=== PATIENT | male | born 1970 | race Two or more races ===

== ENCOUNTER 2017-12-11 12:46 | Inpatient (IN) | payer OTHER ==
[~2017-12-11] VITALS: Ht 167.6 cm; Wt 61.0 kg
[2017-12-11] MEDS ORDERED: METF-960 PO (12:52)
[2017-12-11] MEDS ORDERED: SODIUM CHLORIDE 0.9% 1,000 ML IV ONE ×2 (13:15)
[2017-12-11 13:26] LABS: BASOPHILS % (AUTO) 0.3 % (0.0-2.0); EOSINOPHILS % (AUTO) 0.2 % (1.0-6.0); HEMATOCRIT 46.4 % (41-53); HEMOGLOBIN 15.3 g/dL (13.5-17.5); LYMPHOCYTES # (AUTO) 1.1 K/uL (1.0-4.8); LYMPHOCYTES % (AUTO) 5.9 % (22.0-44.0); MEAN CORPUSCULAR HEMOGLOBIN 28.5 pg (26.0-34.0); MEAN CORPUSCULAR VOLUME 86 fL (80-100); MONOCYTES # (AUTO) 0.2 K/uL (0.1-1.0); MONOCYTES % (AUTO) 1.2 % (2.0-9.0); NEUTROPHILS # (AUTO) 16.7 K/uL (1.8-7.7); RED BLOOD CELL COUNT(AUTO) 5.37 MIL/uL (4.50-5.90); RED CELL DISTRIBUTION WIDTH 15.2 % (11.5-14.5)
[2017-12-11 13:28] LABS: NEUTROPHILS % (AUTO) 92.4 % (40.0-70.0)
[2017-12-11 13:31] LABS: INR 1.1 (0.9-1.1); PROTHROMBIN TIME 11.1 SEC (9.4-11.6)
[2017-12-11 13:43] LABS: LACTIC ACID 1.4 mmol/L (0.4-2.0)
[2017-12-11 13:44] LABS: ALANINE AMINOTRANSFERASE 36 U/L (12-78); ALBUMIN 2.8 g/dL (3.4-5.0); ALKALINE PHOSPHATASE 275 U/L (46-116); ANION GAP 30 mmol/L (8-16); ASPARTATE AMINOTRANSFERASE 23 U/L (15-37); BILIRUBIN,TOTAL 0.7 mg/dL (0.1-1.0); CALCIUM, TOTAL 9.3 mg/dL (8.8-10.5); CHLORIDE 96 mmol/L (98-107); CREATININE 1.07 mg/dL (0.60-1.30); GLOMERULAR FILTR. RATE CALC > 60 mL/min (>60); GLUCOSE,RANDOM 223 mg/dL (70-110); SODIUM SERUM 135 mmol/L (136-145); THYROID STIMULATING HORMONE 0.96 uIU/mL (0.36-3.74); TOTAL PROTEIN, SERUM 8.6 g/dL (6.4-8.2); UREA NITROGEN, BLOOD 22 mg/dL (7-18)
[2017-12-11 13:45] LABS: CARBON DIOXIDE 9 mmol/L (22-29)
[2017-12-11 13:57] LABS: PLATELET COUNT (AUTO) 1117 K/uL (150-450)
[2017-12-11 14:02] LABS: ABG A-A DIFF O2 9.3 mmHg (10-20.0); ABG CARBOXYHEMOGLOBIN 1.3 % (0.0-1.5); ABG METHEMOGLOBIN 0.3 % (0.0-1.5); ABG OXYGEN SATURATION 98.3 % (95.0-98.0); ABG OXYHEMOGLOBIN 96.7 % (94.0-100.0); ABG TOTAL HEMOGLOBIN 13.1 G/dL (12.0-18.0); PO2, ARTERIAL BG 121.6 mmHg (88.0-96.0); SOURCE, BLOOD GAS ARTERIAL; TEMPERATURE, FAHRENHEIT, BG 98.9 FAHREN (96.0-98.6)
[2017-12-11 14:03] LABS: ABG HCO3 9.6 mmol/L (22.0-26.0); ABG PCO2 16 mmHg (35-45); ABG PH 7.168 (7.35-7.450); SITE, BLOOD GAS RT RADIAL
[2017-12-11 14:10] LABS: OSMOLALITY 313 mOS/kg (270-310)
[2017-12-11 14:15] LABS: ACETONE,BLOOD 1:16 (NEGATIVE)
[2017-12-11 14:18] LABS: SALICYLATE 3.2 mg/dL (2.8-20.0)
[2017-12-11 14:29] LABS: ACETAMINOPHEN < 2 mcg/mL (10-30)
[2017-12-11 14:54] LABS: AMPHET/METH SCREEN,URINE NEGATIVE (NEGATIVE); BARBITURATE SCREEN, URINE NEGATIVE (NEGATIVE); BENZODIAZEPINES SCREEN,URINE NEGATIVE (NEGATIVE); CANNABINOID SCREEN,URINE NEGATIVE (NEGATIVE); COCAINE SCREEN,URINE NEGATIVE (NEGATIVE); METHADONE SCREEN, URINE NEGATIVE (NEGATIVE); OPIATE SCREEN,URINE NEGATIVE (NEGATIVE)
[2017-12-11 14:55] LABS: APPEARANCE,URINE CLEAR (CLEAR); BILIRUBIN,URINE NEGATIVE (NEGATIVE); GLUCOSE, URINE (UA) >=1000 mg/dL (NEGATIVE); KETONES,URINE >=80 mg/dL (NEGATIVE); LEUKOCYTE ESTERASE ,URINE NEGATIVE (NEGATIVE); NITRATE,URINE NEGATIVE (NEGATIVE); OCCULT BLOOD,URINE TRACE (NEGATIVE); PROTEIN,URINE POS 1+ (NEGATIVE); UROBILINOGEN,URINE 0.2 mg/dL (<=1.0)
[2017-12-11 15:00] LABS: PHENCYCLIDINE SCREEN,URINE NEGATIVE (NEGATIVE)
[2017-12-11 15:03] LABS: BACTERIA,URINE None Seen /HPF (None Seen); RBC,URINE 0-2 /HPF (0-2); SQUAMOUS EPITHELIAL CELL,UR Few /LPF (None Seen); WBC,URINE None Seen /HPF (0-5)
[2017-12-11 15:04] LABS: MUCUS,URINE Rare LPF (None Seen); YEAST,URINE Rare /HPF (None Seen)
[2017-12-11] MEDS ORDERED: MORPHINE SULFATE 4 MG/ML SYRINGE IVP ONE (15:30)
[2017-12-11 18:36] LABS: ABG A-A DIFF O2 15.7 mmHg (10-20.0); ABG BASE EXCESS -18.8 mmol/L (-2.0-3.0); ABG CARBOXYHEMOGLOBIN 1.3 % (0.0-1.5); ABG HCO3 12.2 mmol/L (22.0-26.0); ABG METHEMOGLOBIN 0.3 % (0.0-1.5); ABG OXYGEN CONTENT 19.4 mL/dL (15.0-23.0); ABG OXYGEN SATURATION 98.1 % (95.0-98.0); ABG OXYHEMOGLOBIN 96.5 % (94.0-100.0); ABG PCO2 21 mmHg (35-45); ABG PH 7.241 (7.35-7.450); ABG TOTAL HEMOGLOBIN 14.2 G/dL (12.0-18.0); PO2, ARTERIAL BG 109.5 mmHg (88.0-96.0); SOURCE, BLOOD GAS ARTERIAL; TEMPERATURE, FAHRENHEIT, BG 98.6 FAHREN (96.0-98.6)
[2017-12-11 18:37] LABS: O2 DEVICE,BLOOD GAS ROOM AIR (ROOM AIR); SITE, BLOOD GAS RT RADIAL
[2017-12-11 18:59] LABS: ANION GAP 22 mmol/L (8-16); CALCIUM, TOTAL 8.4 mg/dL (8.8-10.5); CARBON DIOXIDE 11 mmol/L (22-29); CHLORIDE 106 mmol/L (98-107); CREATININE 0.81 mg/dL (0.60-1.30); GLOMERULAR FILTR. RATE CALC > 60 mL/min (>60); GLUCOSE,RANDOM 123 mg/dL (70-110); POTASSIUM 4.3 mmol/L (3.5-5.1); SODIUM SERUM 139 mmol/L (136-145); UREA NITROGEN, BLOOD 19 mg/dL (7-18)
[2017-12-11 19:04] LABS: ALANINE AMINOTRANSFERASE 28 U/L (12-78); ALBUMIN 2.3 g/dL (3.4-5.0); ALKALINE PHOSPHATASE 237 U/L (46-116); ASPARTATE AMINOTRANSFERASE 22 U/L (15-37); BILIRUBIN,TOTAL 0.6 mg/dL (0.1-1.0); TOTAL PROTEIN, SERUM 7.3 g/dL (6.4-8.2)
[2017-12-11 19:06] LABS: LACTIC ACID 0.8 mmol/L (0.4-2.0)
[2017-12-11] MEDS ORDERED: 0.9% SODIUM CHLORIDE 10 ML SYRINGE IVP PRN (20:00)
[2017-12-11] MEDS ORDERED: ZOLPIDEM TARTRATE 5 MG TABLET PO PRN (20:00)
[2017-12-11 20:43] LABS: C-REACTIVE PROTEIN QUANT 5.87 mg/dL (0.00-0.30)
[2017-12-11 21:05] VITALS: BP 151/86
[2017-12-11] MEDS: MVI, ADULT NO.1 WITH VIT K 10 ML in SODIUM CHLORIDE 0.9% 1,000 ML IV SCH ×2 (21:24)
[2017-12-11] MEDS: PANTOPRAZOLE SODIUM 40 MG/VIAL IVP SCH (21:26)
[2017-12-11] MEDS ORDERED: SODIUM CHLORIDE 0.9% 250 ML IV ONE (21:50)
[2017-12-11] MEDS: CefTRIAXone SODIUM 1 GM in DEXTROSE 5%-WATER 10 ML IV SCH (22:02)
[2017-12-11] MEDS: MetroNIDAZOLE 500 MG/NACL 100 ML IV SCH (22:14)
[2017-12-11] MEDS ORDERED: SODIUM CHLORIDE 0.9% 100 ML ONE (22:18)
[2017-12-11] MEDS ORDERED: IOVERSOL 350 MG/ML 100 ML VIAL ONE (22:18)
[2017-12-11] MEDS ORDERED: BARIUM SULFATE 0.1% SUSPENSION 450 ML BOTTLE ONE (22:18)
[2017-12-11] MEDS ORDERED: METOPROLOL TARTRATE 5 MG/5 ML VIAL IVP PRN (23:30)
[2017-12-12] VITALS: BP 150/82
[2017-12-12 04:00] VITALS: BP 158/81
[2017-12-12 05:05] LABS: BASOPHILS % (AUTO) 0.5 % (0.0-2.0); EOSINOPHILS % (AUTO) 0.7 % (1.0-6.0); HEMATOCRIT 41.7 % (41-53); HEMOGLOBIN 13.7 g/dL (13.5-17.5); LYMPHOCYTES # (AUTO) 1.5 K/uL (1.0-4.8); LYMPHOCYTES % (AUTO) 15.5 % (22.0-44.0); MEAN CORPUSCULAR HEMOGLOBIN 28.8 pg (26.0-34.0); MEAN CORPUSCULAR HGB CONC 32.8 G/dL (31.0-37.0); MEAN CORPUSCULAR VOLUME 88 fL (80-100); MONOCYTES # (AUTO) 0.9 K/uL (0.1-1.0); MONOCYTES % (AUTO) 9.3 % (2.0-9.0); NEUTROPHILS # (AUTO) 7.2 K/uL (1.8-7.7); PLATELET COUNT (AUTO) 735 K/uL (150-450); RED BLOOD CELL COUNT(AUTO) 4.76 MIL/uL (4.50-5.90)
[2017-12-12 05:19] LABS: ANION GAP 19 mmol/L (8-16); CALCIUM, TOTAL 8.2 mg/dL (8.8-10.5); CARBON DIOXIDE 13 mmol/L (22-29); CHLORIDE 102 mmol/L (98-107); CREATININE 0.84 mg/dL (0.60-1.30); GLOMERULAR FILTR. RATE CALC > 60 mL/min (>60); GLUCOSE,RANDOM 114 mg/dL (70-110); POTASSIUM 4.2 mmol/L (3.5-5.1); SODIUM SERUM 134 mmol/L (136-145); UREA NITROGEN, BLOOD 16 mg/dL (7-18)
[2017-12-12] MEDS: MetroNIDAZOLE 500 MG/NACL 100 ML IV SCH ×3 (06:15→22:09)
[2017-12-12] MEDS: ONDANSETRON HCL 4 MG/2 ML VIAL IVP PRN (07:58)
[2017-12-12] MEDS: MVI, ADULT NO.1 WITH VIT K 10 ML in SODIUM CHLORIDE 0.9% 1,000 ML IV SCH ×4 (07:59→17:52)
[2017-12-12 08:00] VITALS: BP 132/75
[2017-12-12] MEDS: PANTOPRAZOLE SODIUM 40 MG/VIAL IVP SCH (08:29)
[2017-12-12 12:00] VITALS: BP 138/87
[2017-12-12 13:44] LABS: GLUCOSE,POINT OF CARE 172 MG/DL (70-110)
[2017-12-12] MEDS ORDERED: INSULIN GLARGINE,HUM.REC.ANLOG 100 UNITS/ML SQ ONE (14:15)
[2017-12-12] MEDS: DEXTROSE 5%-0.45% SODIUM CHL 1,000 ML IV SCH ×2 (14:46→23:24)
[2017-12-12] MEDS: MORPHINE SULFATE 2 MG/ML SYRINGE IVP PRN (16:00)
[2017-12-12 16:15] VITALS: BP 131/78
[2017-12-12 20:00] VITALS: BP 124/66
[2017-12-12] MEDS: CefTRIAXone SODIUM 1 GM in DEXTROSE 5%-WATER 10 ML IV SCH (21:25)
[2017-12-13] VITALS (8 sets, daily range): BP systolic 115–136; BP diastolic 49–85
[2017-12-13] MEDS: ONDANSETRON HCL 4 MG/2 ML VIAL IVP PRN (03:47)
[2017-12-13 05:18] LABS: BASOPHILS % (AUTO) 0.4 % (0.0-2.0); EOSINOPHILS % (AUTO) 0.9 % (1.0-6.0); HEMATOCRIT 34.9 % (41-53); HEMOGLOBIN 11.9 g/dL (13.5-17.5); LYMPHOCYTES % (AUTO) 10.7 % (22.0-44.0); MEAN CORPUSCULAR HEMOGLOBIN 28.8 pg (26.0-34.0); MEAN CORPUSCULAR VOLUME 85 fL (80-100); MONOCYTES # (AUTO) 0.8 K/uL (0.1-1.0); NEUTROPHILS # (AUTO) 7.2 K/uL (1.8-7.7); PLATELET COUNT (AUTO) 583 K/uL (150-450); RED BLOOD CELL COUNT(AUTO) 4.13 MIL/uL (4.50-5.90); RED CELL DISTRIBUTION WIDTH 14.5 % (11.5-14.5)
[2017-12-13 05:24] LABS: ANION GAP 10 mmol/L (8-16); CALCIUM, TOTAL 7.7 mg/dL (8.8-10.5); CARBON DIOXIDE 22 mmol/L (22-29); CHLORIDE 100 mmol/L (98-107); GLOMERULAR FILTR. RATE CALC > 60 mL/min (>60); GLUCOSE,RANDOM 210 mg/dL (70-110); SODIUM SERUM 132 mmol/L (136-145); UREA NITROGEN, BLOOD 6 mg/dL (7-18)
[2017-12-13 05:44] LABS: POTASSIUM 2.7 mmol/L (3.5-5.1)
[2017-12-13] MEDS ORDERED: MAGNESIUM SULFATE 2 GM/WATER 50 ML IV PRN (06:00)
[2017-12-13] MEDS ORDERED: MAGNESIUM SULFATE 4 GM/WATER 100 ML IV PRN (06:00)
[2017-12-13] MEDS: MetroNIDAZOLE 500 MG/NACL 100 ML IV SCH ×3 (06:05→22:04)
[2017-12-13] MEDS: MVI, ADULT NO.1 WITH VIT K 10 ML in SODIUM CHLORIDE 0.9% 1,000 ML IV SCH ×2 (06:05)
[2017-12-13] MEDS: DEXTROSE 5%-0.45% SODIUM CHL 1,000 ML IV SCH (06:06)
[2017-12-13] MEDS: MAGNESIUM OXIDE 400 MG TABLET PO PRN ×3 (06:35→19:11)
[2017-12-13] MEDS: POTASSIUM CHL 10 MEQ/WATER 50 ML IV PRN ×2 (06:37→07:30)
[2017-12-13] MEDS: PANTOPRAZOLE SODIUM 40 MG/VIAL IVP SCH (09:57)
[2017-12-13] MEDS ORDERED: DEXTROSE 50%-WATER 25 GM/50 ML SYRINGE IVP PRN (11:45)
[2017-12-13] MEDS: POTASSIUM CHLORIDE 20 MEQ ER TABLET PO PRN ×2 (13:05→19:10)
[2017-12-13] MEDS: MORPHINE SULFATE 2 MG/ML SYRINGE IVP PRN (17:01)
[2017-12-13] MEDS: INSULIN LISPRO 100 UNITS/ML SQ PRN (17:33)
[2017-12-13] MEDS: INSULIN GLARGINE,HUM.REC.ANLOG 100 UNITS/ML SQ SCH (20:58)
[2017-12-13] MEDS: CefTRIAXone SODIUM 1 GM in DEXTROSE 5%-WATER 10 ML IV SCH (21:00)
[2017-12-14] VITALS: BP 128/79
[2017-12-14] MEDS: POTASSIUM CHLORIDE 20 MEQ ER TABLET PO PRN (00:18)
[2017-12-14] MEDS ORDERED: SODIUM CHLORIDE 0.9% 250 ML IV ONE (02:34)
[2017-12-14 04:00] VITALS: BP 122/75
[2017-12-14 05:50] LABS: MAGNESIUM 1.8 mg/dL (1.80-2.40); POTASSIUM 3.6 mmol/L (3.5-5.1)
[2017-12-14] MEDS: MetroNIDAZOLE 500 MG/NACL 100 ML IV SCH ×3 (05:52→22:00)
[2017-12-14] MEDS: INSULIN LISPRO 100 UNITS/ML SQ PRN ×3 (05:57→20:54)
[2017-12-14 08:00] VITALS: BP 138/69
[2017-12-14] MEDS: INSULIN GLARGINE,HUM.REC.ANLOG 100 UNITS/ML SQ SCH (10:26)
[2017-12-14] MEDS: PANTOPRAZOLE SODIUM 40 MG/VIAL IVP SCH (10:30)
[2017-12-14 12:00] VITALS: BP 122/81
[2017-12-14 15:18] LABS: BASOPHILS % (AUTO) 0.7 % (0.0-2.0); EOSINOPHILS % (AUTO) 0.6 % (1.0-6.0); HEMATOCRIT 38.4 % (41-53); HEMOGLOBIN 12.8 g/dL (13.5-17.5); LYMPHOCYTES # (AUTO) 1.3 K/uL (1.0-4.8); LYMPHOCYTES % (AUTO) 14.7 % (22.0-44.0); MEAN CORPUSCULAR HEMOGLOBIN 28.3 pg (26.0-34.0); MEAN CORPUSCULAR HGB CONC 33.4 G/dL (31.0-37.0); MEAN CORPUSCULAR VOLUME 85 fL (80-100); MONOCYTES # (AUTO) 1.3 K/uL (0.1-1.0); MONOCYTES % (AUTO) 15.4 % (2.0-9.0); NEUTROPHILS # (AUTO) 5.9 K/uL (1.8-7.7); PLATELET COUNT (AUTO) 452 K/uL (150-450); RED BLOOD CELL COUNT(AUTO) 4.53 MIL/uL (4.50-5.90); RED CELL DISTRIBUTION WIDTH 14.6 % (11.5-14.5)
[2017-12-14 15:19] LABS: NEUTROPHILS % (AUTO) 68.6 % (40.0-70.0)
[2017-12-14 15:32] LABS: ALANINE AMINOTRANSFERASE 22 U/L (12-78); ALBUMIN 2.2 g/dL (3.4-5.0); ALKALINE PHOSPHATASE 170 U/L (46-116); ANION GAP 2 mmol/L (8-16); ASPARTATE AMINOTRANSFERASE 19 U/L (15-37); BILIRUBIN,TOTAL 0.5 mg/dL (0.1-1.0); CALCIUM, TOTAL 8.1 mg/dL (8.8-10.5); CARBON DIOXIDE 34 mmol/L (22-29); CHLORIDE 95 mmol/L (98-107); CREATININE 0.64 mg/dL (0.60-1.30); GLOMERULAR FILTR. RATE CALC > 60 mL/min (>60); GLUCOSE,RANDOM 208 mg/dL (70-110); POTASSIUM 3.5 mmol/L (3.5-5.1); SODIUM SERUM 131 mmol/L (136-145); TOTAL PROTEIN, SERUM 6.6 g/dL (6.4-8.2); UREA NITROGEN, BLOOD 6 mg/dL (7-18)
[2017-12-14 16:00] VITALS: BP 115/85
[2017-12-14 16:04] LABS: GLUCOSE,POINT OF CARE 161 MG/DL (70-110)
[2017-12-14 16:04] LABS: GLUCOSE,POINT OF CARE 188 MG/DL (70-110)
[2017-12-14 16:04] LABS: GLUCOSE,POINT OF CARE 220 MG/DL (70-110)
[2017-12-14 16:04] LABS: GLUCOSE,POINT OF CARE 203 MG/DL (70-110)
[2017-12-14 17:29] LABS: FERRITIN 711 ng/mL (26-388)
[2017-12-14 17:50] LABS: % IRON SATURATION 15.2 % (30-44); IRON, SERUM 21 mcg/dL (50-175); PHOSPHORUS 1.1 mg/dL (2.5-4.9); TOTAL IRON BINDING CAPACITY 138 mcg/dL (250-450)
[2017-12-14 20:00] VITALS: BP 126/83
[2017-12-14] MEDS: CefTRIAXone SODIUM 1 GM in DEXTROSE 5%-WATER 10 ML IV SCH (20:53)
[2017-12-14] MEDS: PHOSPHORUS 250 MG TABLET PO SCH (20:53)
[2017-12-15] VITALS: BP 116/73
[2017-12-15] MEDS ORDERED: SODIUM CHLORIDE 0.9% 250 ML IV ONE ×2 (01:27→20:29)
[2017-12-15 04:00] VITALS: BP 113/71
[2017-12-15 04:59] LABS: BASOPHILS % (AUTO) 0.5 % (0.0-2.0); EOSINOPHILS % (AUTO) 0.5 % (1.0-6.0); HEMOGLOBIN 13.4 g/dL (13.5-17.5); LYMPHOCYTES # (AUTO) 1.4 K/uL (1.0-4.8); MEAN CORPUSCULAR HEMOGLOBIN 28.3 pg (26.0-34.0); MEAN CORPUSCULAR HGB CONC 33.4 G/dL (31.0-37.0); MEAN CORPUSCULAR VOLUME 85 fL (80-100); MONOCYTES # (AUTO) 1.3 K/uL (0.1-1.0); MONOCYTES % (AUTO) 14.9 % (2.0-9.0); NEUTROPHILS # (AUTO) 5.7 K/uL (1.8-7.7); NEUTROPHILS % (AUTO) 67.1 % (40.0-70.0); PLATELET COUNT (AUTO) 415 K/uL (150-450); RED BLOOD CELL COUNT(AUTO) 4.73 MIL/uL (4.50-5.90); RED CELL DISTRIBUTION WIDTH 14.5 % (11.5-14.5)
[2017-12-15 05:06] LABS: PROTHROMBIN TIME 10.9 SEC (9.4-11.6)
[2017-12-15 05:11] LABS: ANION GAP 3 mmol/L (8-16); CALCIUM, TOTAL 8.3 mg/dL (8.8-10.5); CARBON DIOXIDE 35 mmol/L (22-29); CHLORIDE 97 mmol/L (98-107); CREATININE 0.52 mg/dL (0.60-1.30); GLOMERULAR FILTR. RATE CALC > 60 mL/min (>60); GLUCOSE,RANDOM 162 mg/dL (70-110); POTASSIUM 3.4 mmol/L (3.5-5.1); SODIUM SERUM 135 mmol/L (136-145); UREA NITROGEN, BLOOD 7 mg/dL (7-18)
[2017-12-15] MEDS: MetroNIDAZOLE 500 MG/NACL 100 ML IV SCH ×3 (05:21→21:41)
[2017-12-15] MEDS: INSULIN LISPRO 100 UNITS/ML SQ PRN ×4 (05:22→22:07)
[2017-12-15 06:59] LABS: GLUCOSE,POINT OF CARE 205 MG/DL (70-110)
[2017-12-15 06:59] LABS: GLUCOSE,POINT OF CARE 188 MG/DL (70-110)
[2017-12-15 06:59] LABS: GLUCOSE,POINT OF CARE 164 MG/DL (70-110)
[2017-12-15 08:00] VITALS: BP 110/72
[2017-12-15] MEDS: PANTOPRAZOLE SODIUM 40 MG/VIAL IVP SCH (08:32)
[2017-12-15] MEDS: PHOSPHORUS 250 MG TABLET PO SCH (08:32)
[2017-12-15] MEDS: POTASSIUM CHLORIDE 20 MEQ ER TABLET PO PRN (08:33)
[2017-12-15] MEDS: INSULIN GLARGINE,HUM.REC.ANLOG 100 UNITS/ML SQ SCH (08:35)
[2017-12-15] MEDS ORDERED: GADOBUTROL 1 MMOL/ML 10 ML VIAL IVP ONE (09:26)
[2017-12-15 12:00] VITALS: BP 107/74
[2017-12-15 12:18] LABS: GLUCOSE,POINT OF CARE 207 MG/DL (70-110)
[2017-12-15 14:48] VITALS: BP 111/70
[2017-12-15 19:33] VITALS: BP 113/77
[2017-12-15 19:51] LABS: GLUCOMETER DEV NAME(LOC) 6N 2D; GLUCOSE,POINT OF CARE 297 MG/DL (70-110)
[2017-12-15] MEDS: CefTRIAXone SODIUM 1 GM in DEXTROSE 5%-WATER 10 ML IV SCH (20:58)
[2017-12-16] VITALS (8 sets, daily range): BP systolic 104–123; BP diastolic 70–86
[2017-12-16] MEDS: MetroNIDAZOLE 500 MG/NACL 100 ML IV SCH ×3 (05:20→22:09)
[2017-12-16] MEDS ORDERED: FentaNYL CITRATE-PF 100 MCG/2 ML VIAL ONE (07:50)
[2017-12-16] MEDS ORDERED: GELATIN SPONGE,ABSORBABLE 12-7 MM TP ONE (07:51)
[2017-12-16] MEDS ORDERED: MIDAZOLAM HCL 2 MG/2 ML VIAL ONE (07:51)
[2017-12-16] MEDS ORDERED: LIDOCAINE/PF 1% 30 ML VIAL ONE (07:51)
[2017-12-16] MEDS ORDERED: FLUMAZENIL 0.1 MG/ML 5 ML VIAL IVP ONE (08:00)
[2017-12-16] MEDS ORDERED: NALOXONE HCL 0.4 MG/ML VIAL ONE (08:00)
[2017-12-16] MEDS ORDERED: MIDAZOLAM HCL 2 MG/2 ML VIAL IVP ONE (08:43)
[2017-12-16] MEDS ORDERED: FentaNYL CITRATE-PF 100 MCG/2 ML VIAL IVP ONE (08:43)
[2017-12-16] MEDS: PHOSPHORUS 250 MG TABLET PO SCH (09:00)
[2017-12-16] MEDS: MORPHINE SULFATE 2 MG/ML SYRINGE IVP PRN ×2 (09:46→13:57)
[2017-12-16] MEDS: PANTOPRAZOLE SODIUM 40 MG/VIAL IVP SCH (09:47)
[2017-12-16] MEDS: INSULIN GLARGINE,HUM.REC.ANLOG 100 UNITS/ML SQ SCH (09:53)
[2017-12-16 11:31] LABS: GLUCOMETER DEV NAME(LOC) 6N 1E; GLUCOSE,POINT OF CARE 169 MG/DL (70-110)
[2017-12-16 11:32] LABS: GLUCOMETER DEV NAME(LOC) 6N 1E; GLUCOSE,POINT OF CARE 155 MG/DL (70-110)
[2017-12-16] MEDS: INSULIN LISPRO 100 UNITS/ML SQ PRN ×3 (11:46→20:44)
[2017-12-16 14:24] LABS: GLUCOMETER DEV NAME(LOC) 6N 2D; GLUCOSE,POINT OF CARE 149 MG/DL (70-110)
[2017-12-16 14:24] LABS: GLUCOMETER DEV NAME(LOC) 6N 2D; GLUCOSE,POINT OF CARE 171 MG/DL (70-110)
[2017-12-16] MEDS: OxyCODONE HCL/ACETAMINOPHEN 10-325 MG TABLET PO PRN ×2 (16:19→20:50)
[2017-12-16 19:44] LABS: GLUCOMETER DEV NAME(LOC) 6N 2D; GLUCOSE,POINT OF CARE 271 MG/DL (70-110)
[2017-12-16] MEDS: CefTRIAXone SODIUM 1 GM in DEXTROSE 5%-WATER 10 ML IV SCH (20:48)
[2017-12-16 21:34] LABS: GLUCOMETER DEV NAME(LOC) 6N 1E; GLUCOSE,POINT OF CARE 178 MG/DL (70-110)
[2017-12-17] MEDS: OxyCODONE HCL/ACETAMINOPHEN 10-325 MG TABLET PO PRN ×4 (02:33→20:16)
[2017-12-17 03:35] VITALS: BP 112/72
[2017-12-17] MEDS: INSULIN LISPRO 100 UNITS/ML SQ PRN ×4 (06:13→20:25)
[2017-12-17] MEDS: MetroNIDAZOLE 500 MG/NACL 100 ML IV SCH ×3 (06:14→22:13)
[2017-12-17 06:35] LABS: GLUCOMETER DEV NAME(LOC) 6N 2D; GLUCOSE,POINT OF CARE 166 MG/DL (70-110)
[2017-12-17 07:10] VITALS: BP 122/86
[2017-12-17] MEDS: PHOSPHORUS 250 MG TABLET PO SCH (07:30)
[2017-12-17] MEDS: PANTOPRAZOLE SODIUM 40 MG/VIAL IVP SCH (07:30)
[2017-12-17] MEDS: INSULIN GLARGINE,HUM.REC.ANLOG 100 UNITS/ML SQ SCH (07:31)
[2017-12-17 10:39] LABS: GLUCOMETER DEV NAME(LOC) 6N 1E; GLUCOSE,POINT OF CARE 195 MG/DL (70-110)
[2017-12-17 11:10] VITALS: BP 133/84
[2017-12-17 15:24] LABS: GLUCOMETER DEV NAME(LOC) 6N 2D; GLUCOSE,POINT OF CARE 285 MG/DL (70-110)
[2017-12-17 15:26] VITALS: BP 134/69
[2017-12-17] MEDS ORDERED: VANCOMYCIN HCL 1 GM/D5% WATER 200 ML IV ONE (18:00)
[2017-12-17 19:05] LABS: GLUCOMETER DEV NAME(LOC) 6N 2D; GLUCOSE,POINT OF CARE 262 MG/DL (70-110)
[2017-12-17 20:02] VITALS: BP 130/96
[2017-12-17] MEDS: CefTRIAXone SODIUM 1 GM in DEXTROSE 5%-WATER 10 ML IV SCH (20:20)
[2017-12-17 21:54] LABS: GLUCOMETER DEV NAME(LOC) 6N 2D; GLUCOSE,POINT OF CARE 271 MG/DL (70-110)
[2017-12-18 00:01] VITALS: BP 123/82
[2017-12-18] MEDS: OxyCODONE HCL/ACETAMINOPHEN 10-325 MG TABLET PO PRN ×4 (00:22→15:27)
[2017-12-18 04:40] VITALS: BP 128/87
[2017-12-18 06:16] LABS: ANION GAP 5 mmol/L (8-16); CALCIUM, TOTAL 8.1 mg/dL (8.8-10.5); CARBON DIOXIDE 33 mmol/L (22-29); CHLORIDE 96 mmol/L (98-107); CREATININE 0.55 mg/dL (0.60-1.30); GLOMERULAR FILTR. RATE CALC > 60 mL/min (>60); GLUCOSE,RANDOM 192 mg/dL (70-110); POTASSIUM 3.9 mmol/L (3.5-5.1); SODIUM SERUM 134 mmol/L (136-145); UREA NITROGEN, BLOOD 9 mg/dL (7-18)
[2017-12-18] MEDS: MetroNIDAZOLE 500 MG/NACL 100 ML IV SCH ×2 (06:16→12:52)
[2017-12-18] MEDS: INSULIN LISPRO 100 UNITS/ML SQ PRN ×2 (06:20→11:27)
[2017-12-18 07:14] LABS: GLUCOMETER DEV NAME(LOC) 6N 1E; GLUCOSE,POINT OF CARE 178 MG/DL (70-110)
[2017-12-18 07:38] VITALS: BP 128/73
[2017-12-18] MEDS ORDERED: VANCOMYCIN HCL 1 GM/D5% WATER 200 ML IV SCH (08:00)
[2017-12-18] MEDS: PHOSPHORUS 250 MG TABLET PO SCH (08:33)
[2017-12-18] MEDS: PANTOPRAZOLE SODIUM 40 MG/VIAL IVP SCH (08:34)
[2017-12-18] MEDS: INSULIN GLARGINE,HUM.REC.ANLOG 100 UNITS/ML SQ SCH (08:39)
[2017-12-18 11:32] VITALS: BP 145/94
[2017-12-18 15:33] VITALS: BP 111/70
[2017-12-18 19:26] LABS: GLUCOMETER DEV NAME(LOC) 6N 1E; GLUCOSE,POINT OF CARE 223 MG/DL (70-110)
== END 2017-12-18 16:30 | disposition short-term general hospital (02) | DRG 871 ==
LOC: EMS 12:48 → ICU 17:09 → 6N 12-15 14:30
PROVIDERS: ADMIT Hospitalist; ATTEND Hospitalist
PROC: 0F903ZZ Drainage of Liver, Percutaneous Approach (ICD-10-PCS; principal; 2017-12-16)
DX: A41.9 Sepsis, unspecified organism (principal); E11.10 Type 2 diabetes mellitus with ketoacidosis without coma; K75.0 Abscess of liver; E46 Unspecified protein-calorie malnutrition; E86.0 Dehydration; D64.9 Anemia, unspecified; K82.4 Cholesterolosis of gallbladder; R62.7 Adult failure to thrive; R19.7 Diarrhea, unspecified; Z79.84 Long term (current) use of oral hypoglycemic drugs; Z79.899 Other long term (current) drug therapy
CPT/HCPCS: 47000; 71260; 72193; 73552; 74160; 74181; 74183; 76700; 82105; 82728; 82805; 83540; 83550; 83605; 83735; 83930; 84100; 84132; 84145; 84443; 85651; 86140; 86706; 86707; 86753; 86803; 87015; 87040; 87070; 87081; 87205; 87206; 87340; 87350; 93005; 93306; 93971; 96361; 96374; 99285; A9585; C9113; G0480; G0481; J0696; J1815; J2250; J2270; J2310; J2405; J3010; J3370; J3480; J3490; J7030; J7050; J7060